=== PATIENT | male | born 1955 | race Caucasian/White ===

== ENCOUNTER 2018-12-11 09:29 | Observation (INO) | payer BC ==
[~2018-12-11] VITALS: Ht 179.1 cm; Wt 83.5 kg
[2018-12-11] VITALS (14 sets, daily range): BP systolic 127–156; BP diastolic 73–97
[~2018-12-11 09:29] MED LIST: PRAVASTATIN SOD80 M1 ORAL
--- NOTE | 2018-12-11 10:03 | Pre-Procedure Note/Attestation ---
Pre-Procedure Note/Attestation Complete Prior to Procedure Procedure Narrative: laparoscopic left inguinal hernia repair with mesh, possible right, possible open Indications for Procedure Pre-Operative Diagnosis: left inguinal hernia, possible right Attestation I attest that I discussed the nature of the procedure; its benefits; risks and complications; and alternatives (and the risks and benefits of such alternatives ), prior to the procedure, with the patient (or the patient's legal assisted sales representative). I attest that, if there was a reasonable possibility of needing a blood transfusion, the patient (or the patient's legal assisted sales representative) was given the [facility] standardized written summary, pursuant to the [place] Blood Safety Act ([place] Health and Safety Code # 1645, as amended). I attest that I re-evaluated the patient just prior to the surgery and that there has been no change in the patient's H&P, except as documented below: Kwesi Lynch Dec 11, 2018 10:03
[2018-12-11] MEDS ORDERED: Clindamycin 600mg 50 ML IV ONE (10:15)
[2018-12-11] MEDS ORDERED: fentaNYL 100 mcg/2 mL IV ONE (10:33)
[2018-12-11] MEDS ORDERED: Midazolam 2mg/2ml Inj ONE (10:34)
[2018-12-11] MEDS ORDERED: Lidocaine 1% MPF 10mg/ml 5ml ONE (10:38)
[2018-12-11] MEDS ORDERED: Propofol 200mg/20ml IV ONE (10:38)
[2018-12-11] MEDS ORDERED: Bupivacaine w/Epi 0.5% 30ml Vial INJ ONE (11:26)
[2018-12-11] MEDS ORDERED: Neostigmine 1mg/ml 10ml Inj ONE (12:00)
[2018-12-11] MEDS ORDERED: Succinylcholine 20mg/ml 10ml vial ONE (12:00)
[2018-12-11] MEDS ORDERED: Sterile Water Irrig 1000ml IRRIG ONE (12:00)
[2018-12-11] MEDS ORDERED: LR 1000ml ONE (12:00)
[2018-12-11] MEDS ORDERED: NS Irrig 1000ml ONE (12:00)
[2018-12-11] MEDS ORDERED: LR 1000ml 1,000 ML IVLG SCH (12:49)
--- NOTE | 2018-12-11 12:49 | Anethesia Preoperative Eval ---
Anesthesia Pre-op PMH/ROS General Date of Evaluation: Dec 11, 2018 Time of Evaluation: 11:42 Anesthesiologist: Isabella ASA Score: ASA 2 Mallampati Score Class I : Soft palate, uvula, fauces, pillars visible Class II: Soft palate, uvula, fauces visible Class III: Soft palate, base of uvula visible Class IV: Only hard plate visible Mallampati Classification: Class II Surgeon: Vikram Diagnosis: Bilateal injuinal hernia Surgical Procedure: Hernia repai Anesthesia History: none Family History: no anesthesia problems Allergies: Coded Allergies: No Known Allergies (Unverified , 12/10/18) Medications: see eMAR Patient NPO?: Yes Past Medical History Cardiovascular: Reports: HTN - borderline; Denies: CAD, [place], valve dz, arrhythmia, other Pulmonary: Denies: asthma, COPD, JULIANA, other Gastrointestinal/Genitourinary: Reports: GERD; Denies: CRI, ESRD, other Neurologic/Psychiatric: Reports: depression/anxiety; Denies: dementia, CVA, TIA, other Endocrine: Denies: DM, hypothyroidism, steroids, other HEENT: Denies: cataract (L), cataract (R), glaucoma, [place] (L), [place] (R), other Hematology/Immune: Denies: anemia, DVT, bleeding disorder, other Musculoskeletal/Integumentary: Denies: OA, RA, DJD, DDD, edema, other PMH Narrative: as above PSxH Narrative: none Anesthesia Pre-op Phys. Exam Physician Exam Last Vital Signs Date Time Temp Pulse Resp B/P (MAP) Pulse Ox O2 Delivery O2 Flow Rate FiO2 12/11/18 10:16 Room Air 12/11/18 10:14 98.3 89 18 147/83 97 Constitutional: NAD Neurologic: CN 2-12 intact Cardiovascular: RRR, no M/R/G Respiratory: CTA Gastrointestinal: S/NT/ND Airway Exam Mallampati Score: Class II MO: full Neck: flexible ROM: full Teeth: intact Dentures: no upper, no lower Anesthesia Pre-op A/P Labs see chart Accucheck none Studies Pre-op Studies: EKG - NSR Risk Assessment & Plan Assessment: ASA 2 Plan: GA with ETT Status Change Before Surgery: No Pre-Antibiotics Drug: Ancef 2gr Given Within 1 Hr of Incision: Yes Time Given: 12:28 Vakulenko,Bobby MD Dec 11, 2018 12:49
[2018-12-11] MEDS ORDERED: Morphine Sulfate 10mg/ml Inj ONE (12:52)
[2018-12-11] MEDS ORDERED: Rocuronium Bromide 50mg/5ml Inj IV ONE (12:52)
[2018-12-11] MEDS ORDERED: Glycopyrrolate 0.2mg/ml 1ml Vial ONE (12:57)
[2018-12-11] MEDS ORDERED: Ketorolac 30mg Inj ONE (12:57)
[2018-12-11] MEDS ORDERED: DiphenhydrAMINE 50mg/ml Inj IVP PRN (13:00)
[2018-12-11] MEDS ORDERED: Ketorolac 30mg Inj IV PRN (13:00)
[2018-12-11] MEDS ORDERED: Bacitracin 50000 Units Vial ONE (13:31)
--- NOTE | 2018-12-11 14:09 | Brief Operative Note ---
Immediate Post Operative Note Operative Note Pre-op Diagnosis: left inguinal hernia, possible right Procedure: laparoscopic left inguinal hernia repair with mesh Post-op Diagnosis: left inguinal hernia Surgeon: fatimah Anesthesiologist: lise Anesthesia: general Specimen: yes - lipoma of cord Complications: none Condition: stable Fluids: see records Estimated Blood Loss: minimal Drains: none Implant(s) used?: Yes Kwesi Lynch Dec 11, 2018 14:09
--- NOTE | 2018-12-11 14:16 | Immediate Post-Op Evaluation ---
Immediate Post-Op Evalulation Immediate Post-Op Evalulation Procedure: L laparoscopic injuinal hernia repair Date of Evaluation: Dec 11, 2018 Time of Evaluation: 14:15 IV Fluids: 1200 Blood Products: none Estimated Blood Loss: 50 Urinary Output: none Blood Pressure Systolic: 140 Blood Pressure Diastolic: 86 Pulse Rate: 73 Respiratory Rate: 20 O2 Sat by Pulse Oximetry: 99 Temperature (Fahrenheit): 97.7 Pain Score (1-10): 1 Nausea: No Vomiting: No Complications none Patient Status: reacts, patent, extubated, none Hydration Status: adequate Bobby Ware MD Dec 11, 2018 14:16
[2018-12-11] MEDS: Hydromorphone 0.5mg/0.5ml inj IVP PRN ×2 (14:29→14:53)
--- NOTE | 2018-12-11 14:52 | 48 Hour Post Anesthesia Eval ---
Post Anesthesia Evaluation Procedure: L laparoscopic injuinal hernia repair Date of Evaluation: Dec 11, 2018 Time of Evaluation: 14:50 Blood Pressure Systolic: 115 0: 88 Pulse Rate: 77 Respiratory Rate: 20 Temperature (Fahrenheit): 97.6 O2 Sat by Pulse Oximetry: 98 Airway: patent Nausea: No Vomiting: No Pain Intensity: 2 Hydration Status: adequate Cardiopulmonary Status: stable Mental Status/LOC: patient returned to baseline Follow-up Care/Observations: n/a Post-Anesthesia Complications: none Follow-up care needed: ready to discharge Bobby Ware MD Dec 11, 2018 14:52
--- NOTE | 2018-12-11 19:45 | NUR ---
NURSE NOTES: Patient came up to the floor to room 309-2 from PACU. Patient is awake and oriented. Admission(OBS) done. Belongings list checked. Dressing is clean and intact. No pain at this time. Patient still has difficulty voiding. Given a urinal so RN can measure patients urine output. Needs attended. Call light within reach. In stable condition.
[2018-12-11] MEDS ORDERED: Tylenol #3 tab (300mg/30mg) ORAL PRN (20:30)
[2018-12-11] MEDS ORDERED: D5 1/2NS 1,000 ML IV SCH (20:30)
[2018-12-11] MEDS ORDERED: HYDROmorphone 1mg/ml Carpuject SUBQ PRN (21:00)
[2018-12-11] MEDS: HYDROcodone/Acetamin 5/325 tab ORAL PRN (21:17)
--- NOTE | 2018-12-11 22:00 | Operative Note - Dictated ---
DATE OF OPERATION: 12/11/2018 PREOPERATIVE DIAGNOSES: 1. Reducible left inguinal hernia. 2. Possible right inguinal hernia. POSTOPERATIVE DIAGNOSIS: Large sliding left indirect inguinal hernia. OPERATION PERFORMED: Laparoscopic left inguinal hernia repair with mesh. ATTENDING SURGEON: Kwesi Lynch M.D. FOREIGN LANGUAGE INTERPRETER: None. ANESTHESIOLOGIST: Bobby Ware M.D. ANESTHESIA: General FIELD CLINICAL ENGINEER plus local. ESTIMATED BLOOD LOSS: Minimal. IV FLUIDS: Please see anesthesia records. COMPLICATIONS: None. DRAINS: None. COUNTS: Sponge and needle count correct x2. SPECIMENS: Lipoma of the cord from left side. IMPLANTS: Bard 3D max mesh left-sided, lot [id number], expiration 03/19/2023, reference [id number]. INDICATIONS FOR PROCEDURE: This is a 63-year-old male, who was referred to myself to Dr. Lynch for evaluation of a left inguinal hernia that was duly identified by his primary care physician. The patient was seen in the office, evaluated, and found to have a reducible left inguinal hernia and potentially a right. Surgery was indicated and recommended. Risks, benefits, and alternatives were discussed with the patient in detail, who expressed understanding and consented to surgery. OPERATIVE NOTE: The patient was taken to the operating room and placed on the operating room table in supine position with bilateral arms tucked. All bony prominences were well padded. SCDs were placed. Preoperative time-out was taken in identifying the patient, procedure, operative staff, and surgical staff. The abdomen was clipped, prepped, and draped in standard surgical fashion. General anesthesia was induced. The patient is intubated. An infraumbilical incision was made using a fresh #11 scalpel and carried down to the fascia was elevated and incised. Entry into the abdomen was obtained using the open Susan technique without complication. A 12 mm Susan trocar was inserted and the abdomen was insufflated to 12 to 15 mmHg. The patient tolerated the insufflation well. The secondary trocars were placed under direct visualization beginning with a 5 mm right midabdominal, followed by a 5 mm left mid abdominal without complication. A local anesthetic was infiltrated throughout the skin incision and port sites for patient's comfort. The abdomen was inspected in the right upper quadrant. Liver and gallbladder looked otherwise normal. Left upper quadrant, left lobe of the liver, stomach, and portions of intestines that can be visualized looked otherwise normal. In the right lower quadrant, there was no significant direct or indirect hernia. In palpating on the right side during laparoscopic evaluation, it was clearly identified that there was a lipoma of the cord that was mobile, but no true hernia identified direct or indirect. In the left lower quadrant, there was a large sliding indirect inguinal hernia with sigmoid colon sliding within hernia. Pelvis otherwise normal. At this time, decision was made to proceed with laparoscopic left inguinal hernia repair with mesh. An incision was made in peritoneal lining 2 cm above the defect. Incision was carried from the medial umbilical ligament to the anterior superior iliac spine. A plane was made of the peritoneal lining until the hernia sac was identified and reduced. The cord structures were identified and circumferentially dissected out and protected. The hernia was reduced and the peritoneal lining taken directly down. Medially, we were at the pubic tubercle and Kyle's ligament and laterally good clearance was identified. No significant bleeding. There was some oozing around the cord structures that hemostasis was obtained with using a 5 mm laparoscopic clip. At this time, a Bard 3D mesh, left-sided medium mesh was brought into the operative field and placed into the abdomen and positioned correctly. It was tacked into place using an absorbable Protac device at the Kyle's ligament. The remaining peritoneal lining dissection was then reapproximated using the Protac absorbable Tacker as well. Satisfactory hernia repair was clearly identified at end of procedure. At this time, we began the conclusion of our procedure. The lipoma of the cord was identified prior during reduction of the hernia sac. It was placed in an endoscopic retrieval bag and removed from the abdomen. Secondary trocars removed under direct visualization followed by the umbilical trocar site. The abdomen was desufflated. The umbilical trocar site fascia was reapproximated using [id number] #0 Vicryl suture. The remaining skin incisions were cleansed and reapproximated using 4-0 Monocryl subcuticular interrupted sutures. Skin glue and Steri-Strips were applied. The patient tolerated the procedure well. At the end of the procedure, both testicles were identified in the scrotal sac without complication. Kwesi Lynch M.D. DR: AZEB JOB#: [id number] CC: JULIO
[2018-12-12] VITALS: BP 155/90
[2018-12-12] MEDS: HYDROcodone/Acetamin 5/325 tab ORAL PRN (03:57)
[2018-12-12 04:00] VITALS: BP 153/84
--- NOTE | 2018-12-12 04:14 | NUR ---
NURSE NOTES: Patient able to void more. Lower abdomen is soft. No pain. Encouraged to have more liquid intake and to try and void some more. No signs of distress noted. Needs attended. Call light within reach. In stable condition.
--- NOTE | 2018-12-12 07:30 | NUR ---
NURSE NOTES: Received report from Josh JOYNER. Patient is awake and oriented, no acute distress noted, reporting some abdominal discomfort, patient reports he feels bloated, but otherwise feels well. Surgical lap sites clean, dry, intact. Patient eating breakfast and tolerating well. IV intact and locked. Per report, discharge was held yesterday due to difficulty with urination. Patient now reports he is urinating without issue. Will follow up with MD today for discharge. Patient updated on plan of care for the day. Side rails upx2, bed low and locked, call light in reach. Will continue to monitor.
[2018-12-12 08:00] VITALS: BP 125/84
--- NOTE | 2018-12-12 09:27 | NUR ---
*-* NO INSURANCE INFORMATION IN THE BAR UNABLE TO SEND CLINICALS OR REVIEWS *-*
--- NOTE | 2018-12-12 10:30 | NUR ---
NURSE NOTES: Patient discharged without distress. Reviewed discharge education/handouts with patient and patient verbalized understanding of provided teaching. Patient educated to call Dr. Lynch's office to arrange for follow up appointment. Patient also provided with Dr. Lynch's written discharge instructions. IV removed intact. Patient escorted off unit to private vehicle.
--- NOTE | 2018-12-12 15:11 | General Progress Note ---
Progress Note Progress Note Was able to urinate in the postanesthesia care unit last night. Was admitted for observation overnight. At about midnight he began to urinate small amounts. This morning urinating better. Pain well controlled. No nausea vomiting fever chills. Tolerating diet. Ambulatory d/c home f/u given rx given instructions given thank you Kwesi Lynch Dec 12, 2018 15:11
--- NOTE | 2018-12-12 16:11 | NUR ---
CASE MANAGEMENT:REVIEW 63 YR OLD MALE HERE FOR ELECTIVE SURGERY SI: INGUINAL HERNIA 98.3 89 18 147/83 97% ON RA IS: TO SURGERY FOR LAPAROSCOPIC LT INGUINAL HERNIA REPAIR : TO MED/SURG POST OP 12/12/18 DISCHARGED
== END 2018-12-12 10:25 | disposition home or self-care (01) ==
LOC: SUR 09:29 → 3E 19:30
DX: K40.90 Unilateral inguinal hernia, without obstruction or gangrene, not specified as recurrent (principal); I10 Essential (primary) hypertension; K21.9 Gastro-esophageal reflux disease without esophagitis; F32.9 Major depressive disorder, single episode, unspecified; F41.9 Anxiety disorder, unspecified
CPT/HCPCS: 49650; 96360; 96361; C1781; J0330; J0690; J1170; J1885; J2250; J2270; J2405; J2704; J2710; J3010; 94003; 94150